=== PATIENT | female | born 1945 | race Caucasian/White ===

== ENCOUNTER 2017-03-20 07:27 | Inpatient (IN) | payer OTHER, SELFPAY ==
--- NOTE | ~2017-03-20 | DS ---
Discharge Summary [facility] [address] [place]. [address] NAME: JOSE LUIS NGUYEN : 41 STATUS : DIS IN PAT#: [id number] AGE: 72 ADM/REG DATE : 03/20/17 MR#: [id number] REPORT SERV DATE: 03/26/17 DICTATED BY: MIGUELITO GIRON DATE: 03/25/17 REPORT STATUS : Draft TRANSCRIBED BY: MODL DATE: 03/25/17 ADMISSION DATE: 03/20/2017 DISCHARGE DATE: 03/25/2017 EXCELLENCE COACH: Dr. Skelton. RADIATION ONCOLOGIST: Dr. Kolb. FINAL DIAGNOSES: 1. Acute on chronic hypoxic respiratory failure. 2. Chronic obstructive pulmonary disease exacerbation. 3. History of left lung cancer, status post radiation therapy. 4. Hypertension. 5. Tobacco abuse. DIAGNOSTIC EXAMS: Chest x-ray showing no acute lung infiltrate, COPD. HOSPITAL COURSE: Please refer to the H and P done by myself dated on 03/20/2017. Briefly, this is a 72-year-old female, who comes in for shortness of breath. The patient has a history of COPD and is on 4 L of oxygen all the time. She was also treated for left lung cancer with radiation therapy and seems to be stable and follows up with Dr. Kolb. The patient continues to smoke and three days ago started having some increasing shortness of breath and a productive cough of whitish phlegm turning into gold. She then went to the emergency room, found to have an acute on chronic respiratory failure and referred the patient for admission. We started the patient on steroids and empiric antibiotics and she slowly improved. As of yesterday, she still desaturates to 85% on 4 L on ambulation. Today, she says she feels better and wants to go home. So, if she does well on ambulation at 4 L, she will be discharged, and she will follow up with her PCP, Lucero Epperson, follow up with Dr. Kolb next month, and follow up with Dr. Skelton, Pulmonary. The patient was evaluated by PT and they recommended a Rollator walker and home health care with physical therapy. We will be arranging this if the patient wants it. The patient will be on the following medications. Bisoprolol and hydrochlorothiazide 5/625 one tab p.o. daily, Cardizem CD 180 mg a day, Prinivil 40 mg a day, Spiriva one capsule inhaled a day, hydralazine up to 50 mg p.o. t.i.d., tapering steroids, DuoNebs four times a day p.r.n., Lasix 20 mg a day, Tylenol p.r.n., Tums 500 mg p.r.n., simethicone p.r.n. This has been explained to the patient. She agreed and understood the plan. MORGAN/NATTY Miguelito Giron M.D. / [id number] Discharge Summary [address] [address] NAME: JOSE LUIS NGUYEN : 41 STATUS : DIS IN PAT#: [id number] AGE: 72 ADM/REG DATE : 03/20/17 MR#: [id number] REPORT SERV DATE: 03/26/17 DICTATED BY: MIGUELITO GIRON. DATE: 03/25/17 REPORT STATUS : Draft TRANSCRIBED BY: NATTY DATE: 03/25/17 CC: Declan Sears
--- NOTE | ~2017-03-20 | HP ---
History And Physical [address] [facility] [place]. [address] NAME: JOSE LUIS NGUYEN : 41 STATUS : ADM IN [facility]#: [id number] AGE: 72 ADM/REG DATE : 03/20/17 MR#: [id number] REPORT SERV DATE: 03/20/17 DICTATED BY: MIGUELITO GIRON DATE: 03/20/17 REPORT STATUS : Draft TRANSCRIBED BY: MODL DATE: 03/20/17 DATE OF ADMISSION: 03/20/2017 PCP: Dr. Lucero Epperson. COLLAR STAY FUSER TENDER: Dr. Skelton. RADIATION ONCOLOGIST: Dr. Kolb. This is a 72-year-old female who is a smoker since 14 years old and continues to smoke despite the fact that she has been treated for a left lung cancer with radiation therapy by Dr. Kolb, and he was told to follow up next month. Meanwhile the patient is already on 4 L of oxygen all the time for her COPD. Three days ago, she started having some increasing shortness of breath, productive of whitish phlegm turning gold. This morning she woke up with increased shortness of breath, finally went to the emergency room. She was found to be in respiratory failure, needing 6 L of oxygen to keep up the oxygenation to 94%. The patient got an x-ray. They said that there is no pneumonia and they called us to admit the patient. The patient denies any fever, chills, or sweats. No hemoptysis. There is no nausea or vomiting. No abdominal pain. She does have on and off diarrhea or constipation depending on what her irritable bowel syndrome is doing at the present time. She said that sometimes she gets a stinky odor in her urine but none in the past few days. There is no dysuria, hematuria, or pyuria at present. She denies any near syncopal or syncopal episode. No dizziness. No localized weakness. The rest of the 14-point review of systems is negative except as above. PAST MEDICAL HISTORY: Includes non-small cell lung cancer, hypothyroidism, hypertension, and hyperlipidemia. She had a cataract surgery and left shoulder surgery. ALLERGIES: SHE HAS NO KNOWN DRUG ALLERGIES. MEDICATIONS: Include blood pressure, cholesterol, and COPD medications including steroids and we have the medication list right now which includes Tylenol; DuoNebs; Ziac; calcium; Cardizem CD; Lasix; hydralazine; lisinopril; simethicone; and Spiriva. I was told by the ER physician that the patient is on steroids; however, I cannot verify that in my medication list. FAMILY HISTORY: Mom with asthma. Dad with cancer. Siblings with diabetes and COPD. PHYSICAL EXAMINATION: GENERAL: The patient is alert and oriented x3 and in mild to moderate cardiorespiratory distress. VITAL SIGNS: Include a blood pressure of 149/59, temperature of 99.4, pulse rate of 76, respirations of 30, and saturating at 94% on 6 L. NECK: She has supple neck. No JVD or carotid bruits. No lymphadenopathy. HEENT: [place] conjunctivae. Anicteric sclerae. No pharyngeal erythema. History And Physical [address] [address] NAME: JOSE LUIS NGUYEN : 41 STATUS : ADM IN [facility]#: [id number] AGE: 72 ADM/REG DATE : 03/20/17 MR#: [id number] REPORT SERV DATE: 03/20/17 DICTATED BY: MIGUELITO GIRON DATE: 03/20/17 REPORT STATUS : Draft TRANSCRIBED BY: NATTY DATE: 03/20/17 LUNGS: Fair air entry. Wheezes bilaterally. Could not appreciate any crackles. HEART: Regular rate and rhythm. No murmurs appreciated. Positive bowel sounds. Soft, nontender, no masses. Fair pulses. No edema. NEUROLOGIC: Nonlocalizing. LABORATORY DATA: Reveals a pH of 7.34, pCO2 of 64, PO2 of 101, at 20% FiO2, the rest of the chemistry is within normal limits. White count of 16.8, the rest is within normal limits as well. Chest x-ray shows, my reading, no acute infiltrate, COPD pattern. ASSESSMENT: 1. Acute on chronic hypoxic respiratory failure. 2. Chronic obstructive pulmonary disease exacerbation. 3. Tobacco abuse. 4. Hypertension. 5. History of lung cancer on the left, status post radiation therapy. PLAN: The patient's COPD exacerbation, acute on chronic respiratory failure is likely due to her continued smoking and the smoking in front of her. She refused the patch and would like to smoke. We will try to continue counseling. She wants to be admitted, so we will get her on oxygen and bronchodilator protocol, steroids, and empiric antibiotics. We will try to get the med list and restart that. This has been explained to her in front of the . They agreed and understood the plan. MORGAN/NATTY Miguelito Giron M.D. / [id number] CC: Declan Sears
[2017-03-20 05:20] LABS: BASOPHILS 0.2 %; BASOPHILS ABSOLUTE 0.03 10/3/uL (0.0-0.16); EOSINOPHILS 2.4 %; ER CBC TAT 0 Hrs 05 Mins; HEMATOCRIT 38.5 % (36.0-48.0); HEMOGLOBIN 12.8 g/dL (12.0-16.0); IMMATURE GRANULOCYTES 0.4 %; IMMATURE GRANULOCYTES ABSOLUTE 0.06 10/3/uL (0.0-0.11); LYMPHOCYTES 12.5 %; LYMPHOCYTES ABSOLUTE 2.09 10/3/uL (0.67-4.30); MEAN CORPUS HGB CONC 33.2 g/dL (32.0-36.0); MEAN CORPUSCULAR HEMOGLOB 29.6 pg (26.0-34.0); MEAN CORPUSCULAR VOLUME 89.1 fL (80-100); MEAN PLATELET VOLUME 10.4 fL (9.2-13.0); MONOCYTES 6.6 %; NEUTROPHILS 77.9 %; NEUTROPHILS ABSOLUTE 13.08 10/3/uL (2.02-8.40); PLATELET COUNT 320 10/3/uL (150-400); RBC DISTRIBUTION WIDTH 16.3 % (12.0-16.0); RED CELL COUNT 4.32 10/6/uL (4.0-5.6); WHITE BLOOD CELLS 16.8 10/3/uL (4.5-10.5)
[2017-03-20 05:21] LABS: MANUAL DIFF NO %
[2017-03-20 05:35] LABS: PARTIAL THROMBO TIME 31.7 SEC (22.5-37.2); PROTIME (NOT ORD) 12.6 SEC (12.0-14.5)
[2017-03-20 05:41] LABS: A/G RATIO 0.9 (0.7-1.9); ALBUMIN 3.2 G/DL (3.5-5.0); CALCIUM, SERUM 9.3 MG/DL (8.5-10.4); CHLORIDE, SERUM 96 MMOL/L (96-112); CO2 (CARBON DIOXIDE) 37 MMOL/L (24-34); CREATININE 0.51 MG/DL (0.55-1.02); GFR AFRICAN AMERICAN 110 ML/MIN (>=60); GFR NON AFRICAN AMERICAN 95 ML/MIN (>=60); GLOBULIN 3.4 G/DL (2.5-4.1); GLUCOSE, SERUM 109 MG/DL (60-99); POTASSIUM, SERUM 3.5 MMOL/L (3.5-5.3); SGOT(AST) 8 U/L (5-40); SGPT(ALT) 15 U/L (5-65); SODIUM, SERUM 136 MMOL/L (135-148); TOTAL BILIRUBIN 0.5 MG/DL (0-1.2); TOTAL PROTEIN 6.6 G/DL (6.0-8.5)
[2017-03-20 05:44] LABS: ALKALINE PHOSPHATASE 74 U/L (45-117); BUN (BLOOD UREA NITROGEN) 13 MG/DL (6-23)
[2017-03-20 05:57] LABS: BE (BASE EXCESS) 8.2 MEQ/L (0 +/- 2.5); CARBOXYHEMOGLOBIN 4.5 % (0-3); DEVICE NC; HCO3 (ACTUAL BICARBONATE) 35.7 MEQ/L (23-27); INSTRUMENT SERIAL # 8087; METHEMOGLOBIN 0.1 % (0-3); MODE CMV; O2 CONTENT 17.5 VOL% (18-24); OPERATOR ID 17537; PCO2 (CO2 TENSION) 62 MMHG (35-45); PO2 (O2 TENSION) 65 MMHG (79-93); SAMPLE Arterial; TIDAL VOLUME 500 ML; pH 7.38 (7.37-7.43)
[2017-03-20 06:59] LABS: PROCALCITONIN <0.05 ng/mL (<0.5)
[~2017-03-20 07:27] MED LIST: ACET500CAP PO; APRES25 PO; ASA5GR PO; ASABAYER PO; CARDCD180 PO; CARTIA XT180 MG/24 PO; DUONEB INH; L20 PO; LEVAQUIN750 MG PO; LEVOTHYROXIN50 MCG PO; LISINOPRIL40 MG PO; MACROBID PO; MEDROLPAK4 PO; MONODOX100 MG PO; MUCINEX600 MG PO; P10 PO; P20 PO; PRAV10 PO; PRIN20 PO; PROAIR HFA INH; PROAIR HFA PO; PROVHFA INH; SPIRIVA INH; STERAPRED DS10 MG PO; SYN.05 PO; ZESTRIL40 MG PO; ZIAC5 PO; ZITH250 PO
[2017-03-20 07:35] LABS: INSTRUMENT SERIAL # 8087; PCO2 (CO2 TENSION) 65 MMHG (35-45); PO2 (O2 TENSION) 101 MMHG (79-93); pH 7.34 (7.37-7.43)
[2017-03-20 07:36] LABS: ALLENS TEST Pos; BE (BASE EXCESS) 6.6 MEQ/L (0 +/- 2.5); CARBOXYHEMOGLOBIN 3.7 % (0-3); HCO3 (ACTUAL BICARBONATE) 34.4 MEQ/L (23-27); HEMOBLOGIN CONTENT 13.4 G/DL (12-16); METHEMOGLOBIN 0.2 % (0-3); O2 CONTENT 17.8 VOL% (18-24); OPERATOR ID 14335; SAMPLE Arterial
[2017-03-20] MEDS ORDERED: DUONEB INH (08:05)
[2017-03-20] MEDS ORDERED: LISINOPRIL40 MG PO (08:06)
[2017-03-20] MEDS ORDERED: APRES25 PO (08:06)
[2017-03-20] MEDS ORDERED: SPIRIVA (08:06)
[2017-03-20] MEDS ORDERED: CARDCD180 PO (08:06)
[2017-03-20] MEDS ORDERED: L20 PO (08:06)
[2017-03-20] MEDS ORDERED: ZIAC5 PO (08:06)
[2017-03-20] MEDS ORDERED: MYTAB GAS80 MG PO (08:07)
[2017-03-20] MEDS ORDERED: TUMSROLL PO (08:07)
[2017-03-20] MEDS ORDERED: ACET500CAP PO (08:07)
[2017-03-21 06:19] LABS: BASOPHILS 0.1 %; BASOPHILS ABSOLUTE 0.01 10/3/uL (0.0-0.16); EOSINOPHILS 0 %; HEMATOCRIT 37.7 % (36.0-48.0); HEMOGLOBIN 12.1 g/dL (12.0-16.0); IMMATURE GRANULOCYTES 0.2 %; IMMATURE GRANULOCYTES ABSOLUTE 0.04 10/3/uL (0.0-0.11); LYMPHOCYTES 4.4 %; LYMPHOCYTES ABSOLUTE 0.76 10/3/uL (0.67-4.30); MEAN CORPUS HGB CONC 32.1 g/dL (32.0-36.0); MEAN CORPUSCULAR HEMOGLOB 29.5 pg (26.0-34.0); MEAN PLATELET VOLUME 10.9 fL (9.2-13.0); MONOCYTES 2.2 %; MONOCYTES ABSOLUTE 0.39 10/3/uL (0.21-1.20); NEUTROPHILS 93.1 %; PLATELET COUNT 310 10/3/uL (150-400); RBC DISTRIBUTION WIDTH 16.3 % (12.0-16.0); WHITE BLOOD CELLS 17.4 10/3/uL (4.5-10.5)
[2017-03-21 06:23] LABS: MANUAL DIFF NO %
[2017-03-21 06:33] LABS: BUN (BLOOD UREA NITROGEN) 12 MG/DL (6-23); CALCIUM, SERUM 8.8 MG/DL (8.5-10.4); CHLORIDE, SERUM 102 MMOL/L (96-112); CREATININE 0.48 MG/DL (0.55-1.02); GFR AFRICAN AMERICAN 112 ML/MIN (>=60); GFR NON AFRICAN AMERICAN 97 ML/MIN (>=60); SODIUM, SERUM 138 MMOL/L (135-148)
[2017-03-21 06:34] LABS: CO2 (CARBON DIOXIDE) 32 MMOL/L (24-34); GLUCOSE, SERUM 149 MG/DL (60-99); POTASSIUM, SERUM 4.7 MMOL/L (3.5-5.3)
[2017-03-21 08:51] LABS: ASCORBIC ACID (UR NOT ORDER) NEG (NEG); BILIRUBIN, URINE NEGATIVE (NEG); KETONE, URINE NEGATIVE (NEG); LEUKOCYTE ESTERASE(NOT OR NEG (NEG); NITRITE (URINE) NEG (NEG); WBC (NOT ORDERED) (RFLEX) 1 (0-5)
[2017-03-25] MEDS ORDERED: MUCINEX600 MG PO (14:54)
[2017-03-25] MEDS ORDERED: P20 PO (14:58)
== END 2017-03-25 15:18 | disposition home or self-care (01) | DRG 189 ==
LOC: ER 07:27 → 6NO 08:13 → 2SO 09:03
PROVIDERS: Emergency Medicine; Internal Medicine
DX: J96.21 Acute and chronic respiratory failure with hypoxia (principal); J44.1 Chronic obstructive pulmonary disease with (acute) exacerbation; F17.209 Nicotine dependence, unspecified, with unspecified nicotine-induced disorders; E03.9 Hypothyroidism, unspecified; E78.2 Mixed hyperlipidemia; E78.00 Pure hypercholesterolemia, unspecified; Z79.52 Long term (current) use of systemic steroids; Z85.118 Personal history of other malignant neoplasm of bronchus and lung; Z92.3 Personal history of irradiation
CPT/HCPCS: 36600; 71010; 80048; 80053; 81001; 82805; 83605; 84145; 85025; 85610; 85730; 87040; 87449; 93005; 94003; 94640; 96374; 96375; 97161-GP; 99291; A9270-GY; J0360; J1956; J2405; J2920; J2930